=== PATIENT | female | born 1995 | race Caucasian/White ===

== ENCOUNTER 2020-05-28 20:09 | Emergency (ER) | payer SELFPAY ==
--- NOTE | 2020-05-28 22:30 | ER Document Report ---
ED Medical Screen (RME) - General Chief Complaint: Abdominal Pain Stated Complaint: VOMITING,ABDOMINAL PAIN Time Seen by Provider: 05/28/20 22:24 - HPI Notes: 05/28/20 22:29 25-year-old female to the emergency department with complaints of lower abdominal cramping at 7 PM and has been persistent. She states she has a history of ovarian cyst and this feels very similar. Her last menstrual period was in March. She takes no prescribed. She denies any urinary complaints. Denies any fevers, chills. She has had some vomiting. She denies any pain I performed a brief medical screening exam on the patient determined that the patient needs further evaluation and management by main side provider. I have placed initial orders to help expedite care. - Related Data Home Medications: depot injection Past Medical History - Social History Frequency of alcohol use: Occasional Drug Abuse: None Physical Exam - Vital signs Vitals: Temp Pulse Resp BP Pulse Ox 98.2 F 78 20 128/83 H 100 05/28/20 20:45 05/28/20 20:45 05/28/20 20:45 05/28/20 20:45 05/28/20 20:45 Course - Vital Signs Vital signs: Temp Pulse Resp BP Pulse Ox 98.2 F 78 20 128/83 H 100 05/28/20 20:45 05/28/20 20:45 05/28/20 20:45 05/28/20 20:45 05/28/20 20:45
[2020-05-28] MEDS ORDERED: ONDANSETRON 4 MG TAB.RAPDIS PO ONE (22:33)
--- NOTE | 2020-05-28 23:25 | RADIOLOGY REPORT (SQ) ---
EXAM DESCRIPTION: US PELVIS COMPLETED DATE/TME: 05/28/2020 22:28 CLINICAL HISTORY: 25 years, Female, pelvic pain, hx of ovarian cysts, eval torsion COMPARISON: None. TECHNIQUE: Endovaginal images of the pelvis were obtained. Grayscale imaging and Doppler imaging were performed. LIMITATIONS: None. FINDINGS: The uterus measures approximately 6.3 x 3 x 4.8 cm and appears within normal limits. Endometrium appears relatively homogenous and has a stripe thickness of 4 mm. The cervix is grossly unremarkable. Ovaries measure approximately 3.6 x 2.3 x 2.4 cm on the right and 3.6 x 1.8 x 1.7 cm on the left. There is no adnexal mass or free pelvic fluid. There is no evidence of ovarian torsion. IMPRESSION: Examination is within normal limits as above. copyright 2010 [employer]- All Rights Reserved
[2020-05-28 23:31] LABS: ABSOLUTE BASOPHILS # (AUTO) 0.1 10^3/uL (0.0-0.2); ABSOLUTE EOSINOPHILS # (AUTO) 0.4 10^3/uL (0.0-0.6); ABSOLUTE LYMPHOCYTES (AUTO) 3.8 10^3/uL (0.5-4.7); ABSOLUTE MONOCYTES (AUTO) 0.9 10^3/uL (0.1-1.4); ABSOLUTE NEUT (AUTO) 4.8 10^3/uL (1.7-8.2); BASOPHILS % (AUTO) 0.6 % (0-2); EOSINOPHILS % (AUTO) 3.6 % (0-6); HEMATOCRIT 35.9 % (36.0-47.0); HEMOGLOBIN 12.5 g/dL (12.0-15.5); LYMPHOCYTES % (AUTO) 38.5 % (13-45); MEAN CORPUSCULAR HEMOGLOBIN 30.7 pg (27.0-33.4); MEAN CORPUSCULAR HGB CONC 34.9 g/dL (32.0-36.0); MEAN CORPUSCULAR VOLUME 88 fl (80-97); MONOCYTES % (AUTO) 8.8 % (3-13); PLATELET COUNT 295 10^3/uL (150-450); RED BLOOD COUNT 4.08 10^6/uL (3.72-5.28); RED CELL DISTRIBUTION WIDTH 12.5 % (11.5-14.0); SEGMENTED NEUTROPHILS % (AUTO) 48.5 % (42-78); TOTAL CELLS COUNTED % (AUTO) 100 %; WHITE BLOOD COUNT 9.9 10^3/uL (4.0-10.5)
[2020-05-28 23:42] LABS: ALBUMIN 4.4 g/dL (3.5-5.0); ALKALINE PHOSPHATASE 47 U/L (38-126); ANION GAP 9 (5-19); ASPARTATE AMINO TRANSFERASE 24 U/L (14-36); BILIRUBIN,DIRECT 0.2 mg/dL (0.0-0.4); BILIRUBIN,TOTAL 0.4 mg/dL (0.2-1.3); BLOOD UREA NITROGEN 13 mg/dL (7-20); CARBON DIOXIDE 23 mmol/L (22-30); CHLORIDE 105 mmol/L (98-107); GLUCOSE 98 mg/dL (75-110); POTASSIUM 4.1 mmol/L (3.6-5.0)
[2020-05-28] MEDS ORDERED: NORMAL SALINE 1000 ML 1,000 ML IV ONE (23:52)
[2020-05-28] MEDS ORDERED: KETOROLAC TROMETHAMINE INJ/PF 30 MG/1 ML SDV IV ONE (23:52)
--- NOTE | 2020-05-28 23:53 | ER Document Report ---
ED GI/ - General Chief Complaint: Abdominal Pain Stated Complaint: VOMITING,ABDOMINAL PAIN Time Seen by Provider: 05/28/20 22:24 Primary Care Provider: ISAC PETERSON MD [COMMUNITY BASED STAFF] - Follow up in 3-5 days BETO COLLAZO MD [ACTIVE STAFF] - Follow up in 3-5 days - HPI Onset: Other - 7pm Timing/Duration: Sudden Quality of pain: Cramping Location: Suprapubic Vaginal bleeding (Compared to normal period): None Notes: 05/29/20 00:22 Patient is a 25-year-old female who presents with abdominal pain. Patient states symptoms began around 7 PM today. She describes sharp cramping pain in her lower abdomen. She states she has also been nauseous and vomiting for 24 hours. She denies any chills. Patient denies any vaginal bleeding, vaginal discharge, or concern for STDs. Patient has had a history of ovarian cysts and was concerned that this could be a cyst. Currently on the Depakote shot and not having periods. She is due for her next Depakote shot on June 03. She just moved here with her fianc and is looking for a new BOOTH CLEANER. She has never had any abdominal surgeries. - Related Data Allergies/Adverse Reactions: tree nut Allergy (Verified 05/28/20 22:35) Home Medications: depot injection Past Medical History - Social History Smoking Status: Never Smoker Frequency of alcohol use: Occasional Drug Abuse: None Family History: Reviewed & Not Pertinent Pulmonary Medical History: Reports: Hx Asthma Past Surgical History: Reports: Hx Tonsillectomy Review of Systems - Review of Systems Notes: CONSTITUTIONAL: No fever, fatigue or weight loss. SKIN: No rash. HENT: No congestion, ear pain, or sore throat. EYES: No recent vision problems or eye pain. ENDOCRINE: No thyroid problems. No polyuria or polydipsia. CARDIOVASCULAR: No chest pain or edema. RESPIRATORY: No cough, shortness of breath, congestion, or wheezing. GASTROINTESTINAL: Positive for abdominal pain, nausea, vomiting. GENITOURINARY: No dysuria. MUSCULOSKELETAL: No joint pain or swelling. LYMPHATIC: No swollen glands. NEUROLOGIC: No seizures. No headache, focal weakness or sensory changes. HEMATOLOGIC: No unusual bruising or bleeding. PSYCHIATRIC: No depression or anxiety. Physical Exam - Vital signs Vitals: Temp Pulse Resp BP Pulse Ox 98.2 F 78 20 128/83 H 100 05/28/20 20:45 05/28/20 20:45 05/28/20 20:45 05/28/20 20:45 05/28/20 20:45 - Notes Notes: VITAL SIGNS: Within normal limits. GENERAL: No acute distress, non-toxic appearance. HEAD: Normal with no signs of head trauma. EYES: PERRLA, EOMI, conjunctiva normal, no discharge. EARS: Hearing grossly intact. NOSE: Normal. NECK: Normal range of motion, no tenderness, supple, no lymphadenopathy, No adenopathy, no JVD. CHEST: Clear breath sounds bilaterally. No wheezes, rales, or rhonchi. CARDIAC: Regular rate and rhythm. S1 and S2, without murmurs, gallops, or rubs. VASCULAR: No Edema. Peripheral pulses normal and equal in all extremities. ABDOMEN: Discomfort to suprapubic palpation. GASTROINTESTINAL: Bowel sounds normal GENITOURINARY: Normal, No tenderness LYMPATHTIC: No lymphadenopathy noted. MUSCULOSKELETAL: Good range of motion of all major joints. Extremities without clubbing, cyanosis or edema. NEUROLOGICAL: Alert and oriented x 3. No focal sensory or strength deficits. Speech normal. Follows commands appropriately. PSYCHIATRIC: Normal Affect, judgement and mood. SKIN: Normal appearance with no rashes or lesions. Course - Re-evaluation Re-evalutation: 05/29/20 05:45 Patient's ultrasound was unremarkable. I did offer her a CT scan of the abdomen as I still do not have a cause of her lower abdominal pain. Patient declined. She states she feels better after Toradol. Patient states she does not have insurance and does not want a CT scan. I did discuss with her that I am unable to diagnose any other etiology of her pain such as appendicitis without the CAT scan. Patient did not want this test done. On reexamination, her pain is improved. Patient is resting comfortably. Her lab work was reviewed. I re ferred patient for follow-up with an [employer]. Patient was given strict return precautions to return to the ER in 24 hours if pain is not improved. Patient and her fianc verbalized understanding. - Vital Signs Vital signs: Temp Pulse Resp BP Pulse Ox 98.0 F 73 14 111/67 100 05/29/20 02:39 05/29/20 02:39 05/29/20 02:39 05/29/20 02:39 05/29/20 02:39 - Laboratory Result Diagrams: 05/28/20 23:15 05/28/20 23:15 Laboratory results interpreted by me: 05/28/20 05/29/20 23:15 01:24 Hct 35.9 L Urine Ketones TRACE H Urine Urobilinogen 2.0 H Discharge - Discharge Clinical Impression: Abdominal pain Qualifiers: Abdominal location: lower abdomen, unspecified Qualified Code(s): R10.30 - Lower abdominal pain, unspecified Disposition: HOME, SELF-CARE Instructions: Abdominal Pain ([facility]) Additional Instructions: I have provided the number for a family doctor and an [employer] for you to follow- up with. Please return to the ER if pain does not improve in 24 hours or you develop symptoms such as fever, chills, nausea, or vomiting. Referrals: BETO COLLAZO MD [ACTIVE STAFF] - Follow up in 3-5 days ISAC PETERSON MD [COMMUNITY BASED STAFF] - Follow up in 3-5 days
[2020-05-29 01:38] LABS: APPEARANCE,URINE CLEAR; BILIRUBIN,URINE NEGATIVE (NEGATIVE); COLOR,URINE YELLOW; GLUCOSE, URINE NEGATIVE (NEGATIVE); KETONES,URINE TRACE mg/dL (NEGATIVE); PROTEIN,URINE NEGATIVE (NEGATIVE); URINE SPECIFIC GRAVITY 1.029
[2020-05-29 02:45] VITALS: BP 111/67
== END 2020-05-29 02:47 | disposition home or self-care (01) ==
LOC: ER 20:09
DX: R10.30 Lower abdominal pain, unspecified (principal); R11.2 Nausea with vomiting, unspecified; Z79.899 Other long term (current) drug therapy; J45.909 Unspecified asthma, uncomplicated
CPT/HCPCS: 99285; 96361; 96374; 36415; 83690; 84703; 85025; 80053; 81001; 76856; 93976; S0119; J1885; J7030